=== PATIENT | male | born 1990 | race Asian ===

== ENCOUNTER 2019-06-20 11:08 | Inpatient (IN) | payer SELFPAY ==
[2019-06-20 12:39] VITALS: BMI 30.1
--- NOTE | 2019-06-20 13:56 | HP ---
COWS - Scale Resting Pulse: 0= [place] 80 or Below Sweatin= Chills/Flushing Restless Observation: 1= Difficult to Sit Still Pupil Size: 0= Normal to Room Light Bone or Joint Aches: 4=Acute Joint/Muscle Pain Runny Nose/ Eye Tearin= Runny Nose/Eyes GI Upset > 30mins: 0= None Tremor Observation: 0= None Yawning Observation: 2= >3x During Session Anxiety or Irritability: 2=Irritable/Anxious Goose Flesh Skin: 0=Smooth Skin COWS Score: 12 CIWA Score - Admission Criteria [facility] Guidelines: Admission for Medically Managed Detox: Requires at least one of the followin. CIWA greater than 12 2. Seizures within the past 24 hours 3. Delirium tremens within the past 24 hours 4. Hallucinations within the past 24 hours 5. Acute intervention needed for co occurring medical disorder 6. Acute intervention needed for co occurring psychiatric disorder 7. Severe withdrawal that cannot be handled at a lower level of care (continued vomiting, continued diarrhea, abnormal vital signs) requiring intravenous medication and/or fluids 8. Admission ROS [facility] - HPI Allergies/Adverse Reactions: Allergies Allergy/AdvReac Type Severity Reaction Status Date / Time No Known Allergies Allergy Verified 06/20/19 12:32 History of Present Illness: pt here requesting detox from heroin use , 2 bundles /day since age 25 via inhalation , longest sobriety 7 days , denies OD , latest use yesterday evening / [place] 4 bags , current symptoms as above . 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 , previously in sales Exam Limitations: Clinical Condition - Ebola screening Have you traveled outside of the country in the last 21 days: No Have you had contact with anyone from an Ebola affected area: No Do you have a fever: No - Review of Systems Constitutional: Loss of Appetite EENT: reports: No Symptoms Reported Respiratory: reports: No Symptoms reported Cardiac: reports: No Symptoms Reported GI: reports: See HPI, Poor Appetite : reports: No Symptoms Reported Musculoskeletal: reports: See HPI Neuro: reports: No Symptoms reported Endocrine: reports: No Symptoms Reported Psychiatric: reports: Orientated x3, Agitated, Anxious Patient History - Smoking Cessation Smoking history: Current every day smoker Have you smoked in the past 12 months: Yes Hx Chewing Tobacco Use: No Initiated information on smoking cessation: Yes 'Breaking Loose' booklet given: 06/20/19 - Substances abused Heroin Substance route: Inhalation Frequency: Daily Amount used: 3 bundles Age of first use: 25 Date of last use: 06/18/19 Marijuana/Hashish Substance route: Smoking Frequency: Daily Amount used: 2 to 3 blunts Age of first use: 13 Date of last use: 06/19/19 Admission Physical Exam [facility] - Vital Signs Vital Signs: Vital Signs - 24 hr 06/20/19 12:31 Temperature 97.9 F Pulse Rate 61 Respiratory 20 Rate Blood Pressure 136/89 - Physical General Appearance: Yes: Disheveled, Moderate Distress, Anxious HEENTM: Yes: EOMI, Hearing grossly Normal, Normocephalic, Normal Voice Respiratory: Yes: Chest Non-Tender, Lungs Clear, No Respiratory Distress, No Accessory Muscle Use Neck: Yes: No masses,lesions,Nodules, Trachea in good position Cardiology: Yes: Regular Rhythm, Regular Rate, S1, S2 Abdominal: Yes: Non Tender, Soft Back: Yes: Normal Inspection Musculoskeletal: Yes: full range of Motion, Gait Steady Neurological: Yes: Fully Oriented, Alert, Motor Strength 5/5, Normal Mood/Affect , Normal Response Integumentary: Yes: Warm - Diagnostic (1) Opioid use disorder Current Visit: Yes Status: Chronic (2) Cannabis use disorder, mild, abuse Current Visit: Yes Status: Chronic (3) Nicotine dependence Current Visit: Yes Status: Chronic Qualifiers: Nicotine product type: cigarettes Breathalyzer - Breathalyzer Breathalyzer: 0 Urine Drug Screen - Test Device Lot number: [id number] Expiration date: 02/14/21 - Control Is test valid?: Yes - Results Drug screen NEGATIVE: No Urine drug screen results: THC-Marijuana, FEN-Fentanyl, MOP-Opiates Inpatient Rehab Admission - Rehab Decision to Admit Inpatient rehab admission?: No
[2019-06-20] MEDS ORDERED: cloNIDine HCL 0.1 MG TABLET PO PRN (13:58)
[2019-06-20] MEDS ORDERED: ACETAMINOPHEN 325 MG TABLET (FP) PO PRN ×2 (13:58)
[2019-06-20] MEDS ORDERED: MAGNESIUM HYDROX 2400MG/30ML ORAL SUSPENSION 30 ML CUP PO PRN (13:58)
[2019-06-20] MEDS ORDERED: MAGNESIUM CITRATE 300 ML BOTTLE PO PRN (13:58)
[2019-06-20] MEDS ORDERED: IBUPROFEN 400 MG TABLET (FP) PO PRN (13:58)
[2019-06-20] MEDS ORDERED: MENTHOL/PHENOL 1 EACH UD MM PRN (13:58)
[2019-06-20] MEDS ORDERED: BISMUTH SUBSALICYLATE 524 MG/30 ML UD PO PRN (13:58)
[2019-06-20] MEDS ORDERED: MAG HYDROX/AL HYDROX/SIMETH 30 ML UNIT-DOSE CUP PO PRN (13:58)
[2019-06-20] MEDS ORDERED: METHADONE HCL 10 MG TABLET (FOR DETOX USE ONLY) PO ONE (16:30)
[2019-06-20] MEDS: THIAMINE HCL 100 MG TABLET (FP) PO SCH (22:10)
[2019-06-20] MEDS: METHOCARBAMOL 500 MG TABLET PO PRN (22:11)
[2019-06-20] MEDS: hydrOXYzine PAMOATE 25 MG CAPSULE (FP) PO PRN (22:11)
[2019-06-20] MEDS: MELATONIN 5 MG TABLETS PO PRN (22:11)
[2019-06-21] MEDS ORDERED: METHADONE HCL 5 MG TABLET (FOR DETOX USE ONLY) ONE (09:08)
[2019-06-21] MEDS ORDERED: METHADONE HCL 10 MG TABLET (FOR DETOX USE ONLY) ONE (09:08)
[2019-06-21] MEDS ORDERED: METHADONE (DETOX) 20 MG, METHADONE (DETOX) 5 MG PO ONE (10:00)
[2019-06-21] MEDS: PRENATAL VITAMINS W/ FOLIC ACID TABLET (FP) PO SCH (10:08)
[2019-06-21 11:24] LABS: ALBUMIN 3.9 g/dl (3.4-5.0); BILIRUBIN,TOTAL 0.9 mg/dL (0.2-1); BLOOD UREA NITROGEN 8.9 mg/dL (7-18); CALCIUM 9.2 mg/dL (8.5-10.1); CREATININE 0.9 mg/dL (0.55-1.3); POTASSIUM 3.5 mmol/L (3.5-5.1); TOT PROT 7.2 g/dl (6.4-8.2)
[2019-06-21 11:35] LABS: HEMATOCRIT 43.7 % (35.4-49); HEMOGLOBIN 15.1 GM/dL (11.7-16.9); MCH 29.4 pg (25.7-33.7); MCHC 34.5 g/dl (32.0-35.9); MEAN CELL VOLUME 85.2 fl (80-96); MEAN PLT VOLUME 9.6 fl (7.5-11.1); PLATELET COUNT 235 K/MM3 (134-434); RBC 5.13 M/mm3 (4.00-5.60); RDW 12.9 % (11.9-15.9); WHITE BLOOD COUNT 11.1 K/mm3 (4.0-10.0)
--- NOTE | 2019-06-21 13:40 | PN ---
[facility] COWS - Scale Resting Pulse: 0= [place] 80 or Below Sweatin= Chills/Flushing Restless Observation: 1= Difficult to Sit Still Pupil Size: 0= Normal to Room Light Bone or Joint Aches: 4=Acute Joint/Muscle Pain Runny Nose/ Eye Tearin= None GI Upset > 30mins: 0= None Tremor Observation of Outstretched Hands: 0= None Yawning Observation: 1= 1-2x During Session Anxiety or Irritability: 2=Irritable/Anxious Goose Flesh Skin: 0=Smooth Skin COWS Score: 9 S Progress Note (SOAP) Subjective: c/o muscle aches, chills, anxiety, and irritability. Objective: 06/21/19 13:37 Vital Signs 06/21/19 06/21/19 06:00 09:47 Temperature 97.9 F 98.9 F Pulse Rate 47 L 50 L Respiratory 18 18 Rate Blood Pressure 107/63 141/74 Lab Results WBC 11.1 K/mm3 (4.0-10.0) H 06/21/19 08:10 RBC 5.13 M/mm3 (4.00-5.60) 06/21/19 08:10 Hgb 15.1 GM/dL (11.7-16.9) 06/21/19 08:10 Hct 43.7 % (35.4-49) 06/21/19 08:10 MCV 85.2 fl (80-96) 06/21/19 08:10 MCHC 34.5 g/dl (32.0-35.9) 06/21/19 08:10 RDW 12.9 % (11.9-15.9) 06/21/19 08:10 Plt Count 235 K/MM3 (134-434) 06/21/19 08:10 Sodium 143 mmol/L (136-145) 06/21/19 08:10 Potassium 3.5 mmol/L (3.5-5.1) 06/21/19 08:10 Chloride 109 mmol/L (98-107) H 06/21/19 08:10 Carbon Dioxide 28 mmol/L (21-32) 06/21/19 08:10 Anion Gap 7 MMOL/L (8-16) L 06/21/19 08:10 BUN 8.9 mg/dL (7-18) 06/21/19 08:10 Creatinine 0.9 mg/dL (0.55-1.3) 06/21/19 08:10 Random Glucose 89 mg/dL (74-106) 06/21/19 08:10 Calcium 9.2 mg/dL (8.5-10.1) 06/21/19 08:10 Labs noted with elevated WBC. Assessment: 06/21/19 13:37 AOX3, in no acute respiratory distress. Full ROM, ambulating in the unit. Withdrawal symptoms. Leucocytosis possible due to stress. Plan: continue detox. Repeat CBC in AM to check if WBC is trending down.
[2019-06-21] MEDS: NICOTINE 21 MG/24 HOURS TOPICAL PATCH TD SCH (15:27)
[2019-06-21] MEDS: METHOCARBAMOL 500 MG TABLET PO PRN (17:03)
[2019-06-21] MEDS: hydrOXYzine PAMOATE 25 MG CAPSULE (FP) PO PRN (17:04)
[2019-06-21] MEDS: MELATONIN 5 MG TABLETS PO PRN (23:01)
[2019-06-21] MEDS: THIAMINE HCL 100 MG TABLET (FP) PO SCH (23:01)
[2019-06-22] MEDS ORDERED: METHADONE HCL 10 MG TABLET (FOR DETOX USE ONLY) PO ONE (10:00)
[2019-06-22] MEDS: PRENATAL VITAMINS W/ FOLIC ACID TABLET (FP) PO SCH (10:14)
[2019-06-22] MEDS: NICOTINE 21 MG/24 HOURS TOPICAL PATCH TD SCH (10:14)
[2019-06-22 10:46] LABS: HEMATOCRIT 41.1 % (35.4-49); HEMOGLOBIN 14.6 GM/dL (11.7-16.9); MCH 30.1 pg (25.7-33.7); MCHC 35.6 g/dl (32.0-35.9); MEAN CELL VOLUME 84.7 fl (80-96); MEAN PLT VOLUME 9.3 fl (7.5-11.1); PLATELET COUNT 221 K/MM3 (134-434); RBC 4.85 M/mm3 (4.00-5.60); RDW 12.6 % (11.9-15.9); WHITE BLOOD COUNT 9.9 K/mm3 (4.0-10.0)
--- NOTE | 2019-06-22 17:00 | PN ---
[facility] COWS - Scale Resting Pulse: 0= [place] 80 or Below Sweatin=Flushed/Facial Moisture Restless Observation: 0= Sits Still Pupil Size: 0= Normal to Room Light Bone or Joint Aches: 1= Mild Discomfort Runny Nose/ Eye Tearin= Nasal Congestion GI Upset > 30mins: 0= None Tremor Observation of Outstretched Hands: 2= Slight Tremor Visible Yawning Observation: 0= None Anxiety or Irritability: 1=Feels Anxious/Irritable Goose Flesh Skin: 0=Smooth Skin COWS Score: 7 BHS Progress Note (SOAP) Subjective: sleep disturbance sweats Objective: 06/22/19 16:58 A & O x 3 no acute distress noted Vital Signs Temperature 98.4 F 06/22/19 16:41 Pulse Rate 48 L 06/22/19 16:41 Respiratory Rate 16 06/22/19 16:41 Blood Pressure 105/72 06/22/19 16:41 O2 Sat by Pulse Oximetry (%) Laboratory Last Values WBC 9.9 K/mm3 (4.0-10.0) 06/22/19 07:30 RBC 4.85 M/mm3 (4.00-5.60) 06/22/19 07:30 Hgb 14.6 GM/dL (11.7-16.9) 06/22/19 07:30 Hct 41.1 % (35.4-49) 06/22/19 07:30 MCV 84.7 fl (80-96) 06/22/19 07:30 MCH 30.1 pg (25.7-33.7) 06/22/19 07:30 MCHC 35.6 g/dl (32.0-35.9) 06/22/19 07:30 RDW 12.6 % (11.9-15.9) 06/22/19 07:30 Plt Count 221 K/MM3 (134-434) 06/22/19 07:30 MPV 9.3 fl (7.5-11.1) 06/22/19 07:30 Sodium 143 mmol/L (136-145) 06/21/19 08:10 Potassium 3.5 mmol/L (3.5-5.1) 06/21/19 08:10 Chloride 109 mmol/L (98-107) H 06/21/19 08:10 Carbon Dioxide 28 mmol/L (21-32) 06/21/19 08:10 Anion Gap 7 MMOL/L (8-16) L 06/21/19 08:10 BUN 8.9 mg/dL (7-18) 06/21/19 08:10 Creatinine 0.9 mg/dL (0.55-1.3) 06/21/19 08:10 Est GFR (CKD-EPI)AfAm 136.14 06/21/19 08:10 Est GFR (CKD-EPI)NonAf 117.46 06/21/19 08:10 Random Glucose 89 mg/dL (74-106) 06/21/19 08:10 Calcium 9.2 mg/dL (8.5-10.1) 06/21/19 08:10 Total Bilirubin 0.9 mg/dL (0.2-1) 06/21/19 08:10 AST 9 U/L (15-37) L 06/21/19 08:10 ALT 20 U/L (13-61) 06/21/19 08:10 Alkaline Phosphatase 80 U/L (45-117) 06/21/19 08:10 Total Protein 7.2 g/dl (6.4-8.2) 06/21/19 08:10 Albumin 3.9 g/dl (3.4-5.0) 06/21/19 08:10 RPR Titer Nonreactive (NONREACTIVE) 06/21/19 08:10 HIV 1&2 Antibody Screen Negative 06/21/19 08:10 HIV P24 Antigen Negative 06/21/19 08:10 repeat wbc wnl Assessment: 06/22/19 16:59 withdrawal sx Plan: melatonin to aid sleep increase hydration continue detox 1
[2019-06-22] MEDS: MELATONIN 5 MG TABLETS PO PRN (22:10)
[2019-06-22] MEDS: THIAMINE HCL 100 MG TABLET (FP) PO SCH (22:10)
[2019-06-22] MEDS: hydrOXYzine PAMOATE 25 MG CAPSULE (FP) PO PRN (22:11)
[2019-06-23 06:22] VITALS: TEMP 97.9
[2019-06-23 09:13] VITALS: BP 103/53; PULSE 49
[2019-06-23] MEDS ORDERED: METHADONE HCL 10 MG TABLET (FOR DETOX USE ONLY) ONE (09:34)
[2019-06-23] MEDS ORDERED: METHADONE HCL 5 MG TABLET (FOR DETOX USE ONLY) ONE (09:34)
--- NOTE | 2019-06-23 09:53 | DS ---
[facility] Detox Discharge Summary Admission Date: 06/20/19 - History Present History: Cannabis Dependence, Opioid Dependence - Physical Exam Results Vital Signs: Vital Signs Temperature 97.9 F 06/23/19 09:12 Pulse Rate 49 L 06/23/19 09:12 Respiratory Rate 16 06/23/19 09:12 Blood Pressure 103/53 L 06/23/19 09:12 O2 Sat by Pulse Oximetry (%) - Treatment Hospital Course: Discharged Condition Good, Rehab Referral Accepted Patient has Accepted a Rehab Referral to: pt declined rehab; referral provided - Medication Discharge Medications: Ambulatory Orders NK [No Known Home Medication] 06/20/19 - Diagnosis (1) Cannabis use disorder, mild, abuse Current Visit: Yes Status: Chronic (2) Nicotine dependence Current Visit: Yes Status: Chronic Qualifiers: Nicotine product type: cigarettes Substance use status: uncomplicated Qualified Code(s): F17.210 - Nicotine dependence, cigarettes, uncomplicated (3) Opioid use disorder Current Visit: Yes Status: Chronic - AMA Did Patient Leave Against Medical Advice: Yes
--- NOTE | 2019-06-23 09:53 | PN ---
S Progress Note Note: pt states he wants to go home and refuses to complete his detox. Pt was advised about risk of relapse, seizures, DT's, OD and or loss. Pt chose to sign out AMA.
[2019-06-23] MEDS ORDERED: METHADONE (DETOX) 10 MG, METHADONE (DETOX) 5 MG PO ONE (10:00)
[2019-06-24] MEDS ORDERED: METHADONE HCL 10 MG TABLET (FOR DETOX USE ONLY) PO ONE (10:00)
[2019-06-25] MEDS ORDERED: METHADONE HCL 5 MG TABLET (FOR DETOX USE ONLY) PO ONE (06:00)
== END 2019-06-23 10:37 | disposition left against medical advice (07) | DRG 770 ==
LOC: YASAS 11:08 → Y6N 15:51
PROVIDERS: ADMIT Allergy & Immunology; ATTEND Allergy & Immunology
PROC: HZ2ZZZZ Detoxification Services for Substance Abuse Treatment (ICD-10-PCS; principal; 2019-06-20)
DX: F11.23 Opioid dependence with withdrawal (principal); F12.20 Cannabis dependence, uncomplicated; F17.210 Nicotine dependence, cigarettes, uncomplicated; D72.829 Elevated white blood cell count, unspecified
CPT/HCPCS: 36415; 80053; 85027; 86593; 87389